=== PATIENT | female | born 1995 | race Hispanic/Latino ===

== ENCOUNTER 2024-06-12 11:19 | Emergency (ER) | payer BC ==
[~2024-06-12] VITALS: Ht 144.8 cm; Wt 99.8 kg
--- NOTE | 2024-06-12 11:57 | ERN ---
General Chief Complaint: Cough Stated Complaint: COUGH Time Seen by MD: 11:21 Source: patient History of Present Illness Initial Comments Patient is a 29-year-old female with a past medical history of bronchial asthma who presented to the emergency room with a one-week history of cough, congestion, shortness of breath. Cough is nonproductive. Says that she had gone to a doctor in [place] and was placed on amoxicillin for 6 days however symptoms continued so she decided to come to the ED for further evaluation and management. Denies any fever or chills. Denies any chest pain, or palpitations Allergies: Coded Allergies: Penicillins (Unverified Allergy, Unknown, 06/12/24) Home Meds Active Scripts Albuterol Sulfate (Albuterol Sulfate) 2.5 Mg/3 Ml (0.083 %) Vial.neb, 1 VIAL NEB Q4HPRN PRN for wheezing, #150 ML 0 Refills Prov:LOLA FERNANDEZ MD 06/12/24 Azithromycin (Azithromycin) 500 Mg Tablet, 500 MG PO ONCE, #1 TAB Prov:LOLA FERNANDEZ MD 06/12/24 Azithromycin (Azithromycin) 250 Mg Tablet, 250 MG PO DAILY, #4 TAB Prov:LOLA FERNANDEZ MD 06/12/24 ROS Dictation Constitutional: No appetite loss, No fevers, chills , No night sweats, No weakness, fatigue Eye: No vision change, No redness, pain or discharge ENT: No hearing loss, ear pain or discharge, No nose bleeds, No sore throat, Neck: No swelling. pain or stiffness Respiratory: cough, shortness of breath, Cardiovascular: No chest pain,, palpitations, dyspnea, No edema Gastrointestinal: No abdominal pain, No nausea, vomiting, No diarrhea, constipation Genitourinary: No painful urination, No blood in urine, No urinary incontinence, No frequency or urgency Musculoskeletal: No joint pain, muscle pain, swelling or stiffness Neurological: No numbness, tingling, No weakness, tremors or seizures Psychiatric: : No depression, No anxiety, No sleep disturbance, No Memory changes Lymphatic: No easy bruising, No bleeding tendencies , No swollen lymph nodes A 13-point Review of Systems was assessed, all of which are negative except for HPI or as indicated above. Results Laboratory and Microbiology Lab and Micro Result Laboratory Tests Test 06/12/24 15:06 Influenza Type A Antigen Negative For Type A Influenza Type B Antigen Negative For Type B SARS-CoV-2, RNA, NAAT NEGATIVE SARS CoV-2 Group A Streptococcus Rapid positive (NEGATIVE) *A MDM Potential differential diagnoses include: * Upper respiratory infection * Asthma exacerbation * * Assessment: We will order a rapid strep test, COVID test and influenza a and B test to to rule this out as a cause of the upper respiratory symptoms. We will order nebul izer treatment to help with the congestion. I will re-evaluate the patient after treatment and diagnostic exams have returned to determine whether they require further testing, can be safely discharged home, or need admission for further treatment and evaluation. Given the social determinants of health affecting care, including literacy, access to medical care, prescription drug management, and [id number] drugs, I will ensure that treatment plans are tailored accordingly. Revaluation : Patient is alert and oriented. States she feels a lot better . Disposition: Will discharge patient at this time with prescription of ...... PO and instructions to follow up with PCP for further evaluation and treatment. Attestation: Patient's case was discussed with the ER MD. Reviewed the documentation, medical decision making and treatment plan. Agrees with the findings and plan of care. ED Course Orders Procedure Category Date Status Time Covid Rna Naat LAB 06/12/24 Complete 11:41 Rapid (Group A Strep) LAB 06/12/24 Complete 11:41 Ipratropium/Albuterol PHA 06/12/24 Complete Neb (Duoneb) 12:00 Influenza Type A & B, LAB 06/12/24 Complete Rapid 11:41 Vital Signs Date Time Temp Pulse Resp B/P (MAP) Pulse Ox O2 Delivery O2 Flow Rate FiO2 06/12/24 16:53 98.1 102 16 145/90 98 Room Air* 0 21 06/12/24 14:47 98.1 106 16 150/95 98 Room Air* 0 21 06/12/24 13:11 112 20 06/12/24 11:52 97.9 106 16 151/99 96 Room Air 0 DX & DISP Disposition: Discharge Departure Impression: Primary Impression: Group A streptococcal infection Additional Impression: Acute asthma exacerbation Critical Time: 30 minutes Condition: Stable Scripts Albuterol Sulfate (Albuterol Sulfate) 2.5 Mg/3 Ml (0.083 %) Vial.neb 1 VIAL NEB Q4HPRN PRN for wheezing, #150 ML 0 Refills Prov: LOLA FERNANDEZ MD 06/12/24 Azithromycin (Azithromycin) 500 Mg Tablet 500 MG PO ONCE, #1 TAB Prov: LOLA FERNANDEZ MD 06/12/24 Azithromycin (Azithromycin) 250 Mg Tablet 250 MG PO DAILY, #4 TAB Prov: LOLA FERNANDEZ MD 06/12/24 Additional Instructions: Discharge Instructions: *Follow up with your primary care physician in 2 - 3 days after discharge. *Continue all medications as prescribed. Do not discontinue or change dosages without consulting your PCP. *Gradually resume normal activities as tolerated. *Continue a balanced diet . Reduce salt intake to help manage BP. *Seek immediate medical attention if you experience chest pain, SOB or severe headache. *Smoking cessation is strongly advised. Resources for quitting smoking are available upon request. Referrals: SELF,REFERRAL (PCP) I WAS PRESENT AND PARTICIPATED IN THE CARE OF THIS PATIENT ALONGSIDE WITH THE RESIDENT PHYSICIAN. I HAVE REVIEWED AND PERSONALLY MADE AND APPROVED THE MANAGEMENT PLAN THAT IS DOCUMENTED IN THE NOTE BY MYSELF WITH THE RESIDENT PHYSICIAN. I ACKNOWLEDGED FOR RESPONSIBILITY FOR THE PATIENT'S MANAGEMENT PLAN. LOLA FERNANDEZ MD Jun 12, 2024 11:57 DAVID OLSON MD Jun 17, 2024 07:34
[2024-06-12] MEDS: IpraTROPium/alBUTERol SULFATE 3 ML SOLUTION IH ONE (13:09)
[2024-06-12 13:11] VITALS: PULSE 112; RESP 20
[2024-06-12 15:40] LABS: SARS-CoV-2, RNA, NAAT NEGATIVE SARS CoV-2 (NEGATIVE)
[2024-06-12 15:57] LABS: RAPID GROUP A STREP positive (NEGATIVE)
[2024-06-12 16:00] LABS: INFLUENZA TYPE A Negative For Type A (NEGATIVE); INFLUENZA TYPE B Negative For Type B (NEGATIVE)
[2024-06-12] MEDS ORDERED: AZIT500T4 PO (16:30)
[2024-06-12] MEDS ORDERED: AZIT250T9 PO (16:30)
[2024-06-12 16:53] VITALS: BP 145/90; PULSE 102; RESP 16; TEMP 98.1; O2SAT 98
[2024-06-12] MEDS ORDERED: ALBU2.5V2 NEB (18:17)
== END 2024-06-12 16:57 | disposition home or self-care (01) ==
LOC: EDH 11:19
DX: J45.901 Unspecified asthma with (acute) exacerbation (principal); B95.0 Streptococcus, group A, as the cause of diseases classified elsewhere; Z88.0 Allergy status to penicillin; Z20.822 Contact with and (suspected) exposure to COVID-19
CPT/HCPCS: 87635; 87804; 87880; 94640; 99283